=== PATIENT | female | born 1945 | race Caucasian/White ===

== ENCOUNTER → 2021-08-16 | Outpatient (CLI) | payer MEDICARE, BC ==
--- NOTE | 2021-08-16 18:40 | Diagnostic Imaging Report ---
INDICATION: Palpable lump left breast. CORRELATION is made with prior mammogram from 02/11/2019. 2-D and 3-D bilateral diagnostic mammography was performed with CAD. BB marker was placed at the area of palpable abnormality in the left breast. Both breasts are heterogeneously dense, limiting sensitivity of mammography. There appears to be a circumscribed nodule just deep to the marker in the upper left breast. Further evaluation if this area with ultrasound is recommended. No other masses are seen. No malignant-appearing microcalcifications are identified. Axillae are unremarkable. IMPRESSION: BI-RADS 0. Circumscribed nodule just deep to the BB marker in the upper left breast at the area of palpable abnormality. Further evaluation with ultrasound is recommended and will be performed today. ACR BI-RADS Category 0: Incomplete. (Needs additional imaging evaluation). Result letter will be mailed to the patient. Note: At least 10% of breast cancer is not imaged by mammography. Dictated by: Dictated on workstation # [id number]
--- NOTE | 2021-08-16 18:48 | Diagnostic Imaging Report ---
INDICATION: Palpable lump left breast. CORRELATION is made with the diagnostic mammogram earlier the same day. Sonography interrogation of the palpable abnormality in the upper slightly inner left breast was performed. There is a somewhat heterogeneous nodule at this location measuring 9 mm x 14 mm x 10 mm. This has ill-defined borders. There is questionable posterior acoustic shadowing present as well. No significant vascularity is seen. No other abnormalities are detected. IMPRESSION: BI-RADS Category 4 Indeterminate, ill-defined heterogeneous nodule at the 11:00 location of the left breast, 3 cm from the nipple, corresponding to the palpable abnormality. Small breast neoplasm cannot be entirely excluded. Tissue sampling is recommended. This would be amenable to ultrasound-guided core biopsy. ACR BI-RADS Category 4: Suspicious abnormality. Result letter will be mailed to the patient. Note: At least 10% of breast cancer is not imaged by mammography. Dictated by: Dictated on workstation # [id number]
== END ==
LOC: RAD 14:15
DX: N63.21 Unspecified lump in the left breast, upper outer quadrant (principal)
CPT/HCPCS: 76642; 77066; G0279; 77062

== ENCOUNTER → 2021-08-31 | Outpatient (CLI) | payer MEDICARE, BC ==
[~2021-08-31] VITALS: Ht 165 cm; Wt 54.0 kg
[~2021-08-31] MED LIST: LIDOCAINE 1% INJ 20 ML VIAL INJ ONE
--- NOTE | 2021-08-31 11:08 | Diagnostic Imaging Report ---
Indication: Left breast nodule. Patient presents for ultrasound-guided biopsy. Patient brought to the ultrasound suite placed on table in the supine position. Ultrasound imaging of the left breast was performed to evaluate appropriate entry site. The left breast was then prepped and draped in usual sterile fashion. Small amount 1% lidocaine was utilized for local anesthesia. A total of 3 core biopsies were obtained of the heterogeneous hypoechoic nodule at 11:00 location left breast, 3 cm from the nipple utilizing a 14-gauge achieve needle. A marker clip was then deployed. Hemostasis was obtained using manual compression. Patient tolerated the procedure well. Patient obtained post procedure mammogram. Patient left the department in satisfactory condition. IMPRESSION: Successful sono-guided core biopsy of the hypoechoic nodule at 11:00 location left breast, 3 cm from the nipple. Pathology results are currently pending. Dictated by: Dictated on workstation # [id number]
--- NOTE | 2021-08-31 13:33 | Diagnostic Imaging Report ---
INDICATION: Left breast mass. Patient is status post ultrasound-guided breast mass biopsy. Unilateral left 2-D CC and ML mammography was performed after patient underwent left breast biopsy. There is a marker clip in the upper aspect of the left breast, status post biopsy. IMPRESSION: Marker clip in the upper posterior left breast, status post ultrasound-guided biopsy. Dictated by: Dictated on workstation # [id number]
== END ==
LOC: RAD 09:00
PROVIDERS: ATTEND Family Medicine
DX: N63.22 Unspecified lump in the left breast, upper inner quadrant (principal); N63.21 Unspecified lump in the left breast, upper outer quadrant
CPT/HCPCS: 19083; 77065; 88305; 88341; 88342; 88360; G0279

== ENCOUNTER 2021-10-04 05:33 | Outpatient (CLI) | payer MEDICARE, BC ==
[~2021-10-04] VITALS: Ht 167.6 cm; Wt 61.7 kg
[2021-10-04] MEDS ORDERED: APIX5TAB PO (12:27)
[2021-10-04] MEDS ORDERED: DILT120C85 PO (12:27)
[2021-10-04] MEDS ORDERED: POTA-179 PO (12:27)
[2021-10-04] MEDS ORDERED: ESTR0.62 PO (12:27)
[2021-10-04] MEDS ORDERED: FURO-124 PO (12:27)
[2021-10-04] MEDS ORDERED: ACHD5005 PO (12:27)
[2021-10-04] MEDS ORDERED: DIGO250T3 PO (12:27)
[2021-10-04] MEDS ORDERED: LISI2.5T13 PO (12:27)
[2021-10-04] MEDS ORDERED: ATOR10TA66 PO (12:27)
== END 2021-10-04 12:50 | disposition home or self-care (01) ==
LOC: PREOP 05:33
PROVIDERS: ATTEND Surgery
DX: Z01.818 Encounter for other preprocedural examination (principal)

== ENCOUNTER → 2021-10-11 | Day surgery (SDC) | payer MEDICARE, BC ==
[2021-10-11] VITALS (10 sets, daily range): BP systolic 134–178; BP diastolic 73–94
[~2021-10-11] VITALS: Ht 167 cm; Wt 61.7 kg
[~2021-10-11] MED LIST changes: +ACHD5005 PO; +APIX5TAB PO; +ATOR10TA66 PO; +DIGO250T3 PO; +DILT120C85 PO; +DOCU-143 PO; +ESTR0.62 PO; +FURO-124 PO; +HYDROcodone/APAP 5 MG/325 MG (LORTAB) TAB ONE; +HYDROcodone/APAP 5 MG/325 MG (LORTAB) TAB PO ONE; +LIDOCAINE 1% INJ 20 ML VIAL ONE; +LIDOCAINE PF 2% 5 ML (XYLOCAINE) VIAL ONE; +LIDOCAINE/EPI 2% 1:100,00 (XYLOCAINE) 20 ML VIAL ONE; +LISI2.5T13 PO; +METHYLENE BLUE 0.5% (PROVAYBLUE) 50 mg/10 ml vial IV ONE; +ONDANSETRON 4 MG/2 ML (SDV) Z0FRAN IVP PRN; +ONDANSETRON 4 MG/2 ML (SDV) Z0FRAN ONE; +POTA-179 PO; +SEVOFLURANE (ULTANE) 15 ML INHAL SOLN ONE; +ceFAZolin INJECTION 1,000 MG VIAL IV ONE; +fentaNYL INJ 100 MCG/2 ML AMP IVP ONE; +fentaNYL INJ 100 MCG/2 ML AMP ONE; +proPOfol 200 MG/20 ML (DIPRIVAN) VIAL IV ONE
--- NOTE | 2021-10-11 08:06 | Progress Note-Pre Operative ---
Pre-Operative Progress Note H&P Reviewed The H&P was reviewed, patient examined and no changes noted. 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
--- NOTE | 2021-10-11 09:14 | Diagnostic Imaging Report ---
INDICATION: Breast cancer. A total of 1.0 mCi technetium 99m sulfur colloid was injected in 4 separate aliquots in a left breast periareolar distribution. Imaging was performed. Imaging demonstrates activity at the injection sites in the periareolar region. There is migration of activity into the left axilla consistent with activity within the sentinel node. This was marked on the patient's skin. IMPRESSION: Left breast lymphoscintigraphy, as described. Dictated by: Dictated on workstation # [id number]
--- NOTE | 2021-10-11 09:34 | Diagnostic Imaging Report ---
INDICATION: Left breast carcinoma. Patient is status post ultrasound-guided hookwire placement. TECHNIQUE: Unilateral left 2D CC and ML mammography was performed. The current study was evaluated with a Computer Aided Detection (CAD) system. FINDINGS: The hookwire appears to enter from a lateral approach. The hookwire is located just anterior to the marker clip in the upper aspect of the left breast. IMPRESSION: Hookwire placement, as described. Dictated by: Dictated on workstation # [id number]
[2021-10-11] MEDS: LACTATED RINGERS 1,000 ML IV PRN ×3 (10:02→12:28)
--- NOTE | 2021-10-11 11:14 | Diagnostic Imaging Report ---
INDICATION: Left breast cancer. PROCEDURE: The patient presents for ultrasound-guided wire localization. The patient was brought to the sonographic suite and placed on the table in the supine position. Ultrasound imaging of the left breast was performed to evaluate appropriate entry site. Left breast was then prepped and draped in the usual sterile fashion. A small amount of 1% lidocaine was utilized for local anesthesia. A localizer needle was advanced through the lesion at the 11:00 location of the left breast, 3 cm from the nipple. The hookwire was deployed. The needle was removed. The hookwire was affixed to the patient's skin. The patient tolerated the procedure well. The patient was sent for post procedure mammogram in satisfactory condition. IMPRESSION: Successful ultrasound-guided hookwire localization of the lesion at the 11:00 location of the left breast, 3 cm from the nipple. Dictated by: Dictated on workstation # [id number]
--- NOTE | 2021-10-11 12:34 | Diagnostic Imaging Report ---
INDICATION: Left breast carcinoma status post lumpectomy. TECHNIQUE: A specimen radiograph was submitted. FINDINGS: The hookwire and a localizer clip are located within the specimen. There is an area of rounded density noted within the specimen as well located between coordinates C to E as well as 8 through 10. This may represent the known breast mass. IMPRESSION: Specimen radiograph, as described. Dictated by: Dictated on workstation # [id number]
--- NOTE | 2021-10-11 12:48 | Anesthesia-General Post-Op ---
General Patient Condition Mental Status/LOC: Same as Preop Cardiovascular: Satisfactory Nausea/Vomiting: Absent Respiratory: Satisfactory Pain: Controlled Complications: Absent Post Op Complications Complications None Follow Up Care/Instructions Patient Instructions None needed. Anesthesia/Patient Condition Patient Condition Patient is doing well, no complaints, stable vital signs, no apparent adverse anesthesia problems. No complications reported per nursing. MADDIE CUBA CRNA Oct 11, 2021 12:48
--- NOTE | 2021-10-11 13:24 | Discharge Inst-Simple/Standard ---
Discharge Inst-Standard Discharge Medications New, Converted or Re-Newed RX: Transmitted to Pharmacy Patient Instructions/Follow Up Plan of Care/Instructions/FU: 2 weeks Tommy Activity as Tolerated: No Discharge Diet: Regular Diet Other Inst to Patient Follow up Appt: Make appointment for 2 week. Instructions: No lifting greater than 10 pounds. No strenuous activity. May shower in 24 hours, no tub bath or soaking. Use incentive spirometer at home as directed. No Smoking Skin/Wound Care: You have special glue over your incision that will fall off on it's own. Change bandage daily and as needed for comfort. Wear supportive clothing. Symptoms to Report: Appetite Changes, Extremity Discoloration, Numbness/Tingling, Swelling Increased, Bleeding Excessive, Eyesight Changes, Pain Increased, Urine Color Change, Constipation(Persistent), Fever over 101 degree F, Pain/Pressure in chest, Urinating Difficulty, Cough Up/Vomit Blood, Heart Beat Irreg/Pounding, Pain/Pressure in jaw, Vaginal Bleeding Increase, Cramps in feet or legs, Lightheadedness, Pain/Pressure in shoulder, Diarrhea(Persistent), Memory Changes Suddenly, Questions/Concerns, Weight gain consecutive days, Dizziness/Fainting, Nausea/Vomiting, Shortness of Breath, Weight gain over 2 pounds If questions or concerns contact your physician Or seek help at emergency department. KAYLEN MORRIS DO Oct 11, 2021 13:24
--- NOTE | 2021-10-11 13:27 | Progress Note-Post Operative ---
Post-Operative Progess Note Surgeon (s)/Radiation Control Worker (s) Surgeon KAYLEN MORRIS DO Radiation Control Worker: Ralph Knowles Pre-Operative Diagnosis left breast infiltrating lobular carcinoma left breast Post-Operative Diagnosis same Procedure & Operative Findings Date of Procedure 10/11/21 Procedure Performed/Findings wire localzied left breast lumpectomy with sentinel node biopsy Anesthesia Type general Estimated Blood Loss Estimated blood loss (mL): minimal Specimens/Packing Specimens Removed wire localized left breast lumpectomy and sentinel node KAYLEN MORRIS DO Oct 11, 2021 13:27
--- NOTE | 2021-10-11 21:28 | OPERATIVE REPORT ---
DATE OF SERVICE: 10/11/2021 PREOPERATIVE DIAGNOSIS: Left breast infiltrating lobular carcinoma. POSTOPERATIVE DIAGNOSIS: Left breast infiltrating lobular carcinoma. PROCEDURE: Wire localized left breast lumpectomy with sentinel node biopsy. SURGEON: Kaylen Sanders DO DIRECTOR OF INFORMATICS: to assist in retraction, dissection and closure. ANESTHESIA: General. ESTIMATED BLOOD LOSS: Minimal. COMPLICATIONS: None. INDICATIONS: The patient is a 75-year-old female with left breast infiltrating lobular carcinoma. She understands risks and benefits of procedure and wished to proceed. Consent was signed in the chart. DESCRIPTION OF PROCEDURE: The patient was taken to the operating suite. She was prepped and draped in sterile fashion. Timeout was performed. Methylene blue was injected in four locations on the breast, 1 mL in each location. The breast was then massaged for lymphatic distribution. The breast was then reprepped and draped in a sterile fashion. An incision was made in the left upper quadrant of the breast and the wire was then incorporated through the incision. Cautery was used to dissect circumferentially around the wire until the wire and mass were removed. Radiological imaging demonstrated removal of the mass, clip and wire. The wound was then irrigated with sterile water. Hemostasis was achieved. The Maypearl counter was then used to isolate the sentinel node. A node in vivo was found to be 3818. This was then able to be dissected around and removed. A 10-second count on the node was 11,733. No other nodes were able to be felt with the Maypearl counter within 10% of the original in vivo count. The axilla was then irrigated with copious amounts of irrigation. Subcutaneous tissues were then reapproximated using 3-0 Vicryl. Skin was then closed using 4-0 Monocryl in a running subcuticular fashion. The area was washed and dried and Skin Affix was placed over the incision. Sterile bandages were applied. The patient tolerated procedure well without any complications, taken to recovery room in stable condition. Job ID: [id number] DocumentID: [id number] Dictated Date: 10/11/2021 17:15:27 Metal Wire Technician Date: 10/11/2021 21:26:17 Dictated By: KAYLEN SANDERS DO
== END ==
LOC: CARD 06:13
PROVIDERS: ATTEND Surgery
DX: C50.912 Malignant neoplasm of unspecified site of left female breast (principal); Z79.01 Long term (current) use of anticoagulants
CPT/HCPCS: 19285; 19301; 38500; 38900; 76098; 77065; 78195; 87081; A4648; A9541; G0279; 88307; 88342

== ENCOUNTER → 2021-11-13 | Outpatient (CLI) | payer MEDICARE, BC ==
[~2021-11-13] MED LIST changes: -HYDROcodone/APAP 5 MG/325 MG (LORTAB) TAB ONE; -HYDROcodone/APAP 5 MG/325 MG (LORTAB) TAB PO ONE; -LIDOCAINE 1% INJ 20 ML VIAL INJ ONE; -LIDOCAINE 1% INJ 20 ML VIAL ONE; -LIDOCAINE PF 2% 5 ML (XYLOCAINE) VIAL ONE; -LIDOCAINE/EPI 2% 1:100,00 (XYLOCAINE) 20 ML VIAL ONE; -METHYLENE BLUE 0.5% (PROVAYBLUE) 50 mg/10 ml vial IV ONE; -ONDANSETRON 4 MG/2 ML (SDV) Z0FRAN IVP PRN; -ONDANSETRON 4 MG/2 ML (SDV) Z0FRAN ONE; -SEVOFLURANE (ULTANE) 15 ML INHAL SOLN ONE; -ceFAZolin INJECTION 1,000 MG VIAL IV ONE; -fentaNYL INJ 100 MCG/2 ML AMP IVP ONE; -fentaNYL INJ 100 MCG/2 ML AMP ONE; -proPOfol 200 MG/20 ML (DIPRIVAN) VIAL IV ONE
--- NOTE | 2021-11-13 15:25 | Diagnostic Imaging Report ---
INDICATION: Postmenopausal screening COMPARISON: Baseline FINDINGS: AP Spine L1-L4: [BMD (g/cm2): 1.064] [T-Score: -1.1] [Z-Score: 0.8] [BMD Previous: na] [BMD % Change: na] LT Hip Neck: [BMD (g/cm2): 0.750] [T-Score: -2.1] [Z-Score: 0.0] LT Hip Total: [BMD (g/cm2):0.752] [T-Score:-1.7] [Z-Score: 0.2] [BMD Previous: na] [BMD % Change: na] RT Hip Neck: [BMD (g/cm2):0.692] [T-Score:-2.5] [Z-Score:-0.4] RT Hip Total: [BMD (g/cm2):0.748] [T-score:-2.1] [Z-Score:-0.1] [BMD Previous:na] [BMD % Change:na] *Indicates significant change from prior examination based on 95% confidence level. World Health Organization criteria for BMD interpretation classify patients as Normal (T-score at or above -1.0), Osteopenic (T-score between -1.0 and -2.5) or Osteoporotic (T-score at or below -2.5). LIMITATIONS AND MODIFICATION: None. FRACTURE RISK (FRAX SCORE): The ten year probability of (%): Major Osteoporotic Fracture: [16.7] Hip Fracture: [5.9] IMPRESSION: 1. Osteopenia (Low bone mass). 2. Baseline examination. 3. See below National Osteoporosis Foundation guidelines on when to potentially initiate pharmacologic therapy. Based on the National Osteoporosis Foundation Guidelines, pharmacologic treatment should be initiated in any of the following, unless clinical conditions suggest otherwise: * Any patient with prior fragility fracture of the hip or vertebrae. A spine fracture indicates 5X risk for subsequent spine fracture and 2X risk for subsequent hip fracture. * Osteoporosis (T-score <-2.5). * Postmenopausal women and men age 50 and older with low bone mass/osteopenia (T-score between -1.0 and -2.5) by DXA and 10-year major osteoporotic fracture greater than 20% or a 10-year probability of hip fracture greater than 3%. These fracture risks are supplied above in the FRAX score, if applicable. * Clinician judgement and/or patient preferences may indicate treatment for people with 10-year fracture probabilities above or below these levels. Dictated by: Dictated on workstation # [id number]
== END ==
LOC: RAD 12:30
PROVIDERS: ATTEND Internal Medicine Hematology & Oncology
DX: Z13.820 Encounter for screening for osteoporosis (principal); M85.88 Other specified disorders of bone density and structure, other site; C50.212 Malignant neoplasm of upper-inner quadrant of left female breast; Z78.0 Asymptomatic menopausal state; Z79.811 Long term (current) use of aromatase inhibitors
CPT/HCPCS: 77080

== ENCOUNTER 2022-03-15 13:09 | Emergency (ER) | payer MEDICARE, BC ==
[~2022-03-15] VITALS: Ht 170.2 cm; Wt 62.1 kg
[2022-03-15 13:58] LABS: BASOPHILS % (AUTO) 1 % (0-10); EOSINOPHILS # (AUTO) 0.2 10^3/uL (0.0-0.3); EOSINOPHILS % (AUTO) 3 % (0-10); HEMATOCRIT 41 % (35-52); HEMOGLOBIN 13.3 g/dL (11.5-16.0); LYMPHOCYTES # (AUTO) 1.7 10^3/uL (1.0-4.0); LYMPHOCYTES % (AUTO) 31 % (12-44); MEAN CORPUSCULAR HEMOGLOBIN 32 pg (25-34); MEAN CORPUSCULAR HGB CONC 33 g/dL (32-36); MEAN CORPUSCULAR VOLUME 97 fL (80-99); MEAN PLATELET VOLUME 9.4 fL (9.0-12.2); MONOCYTES # (AUTO) 0.6 10^3/uL (0.0-1.0); MONOCYTES % (AUTO) 12 % (0-12); NEUTROPHILS # (AUTO) 2.8 10^3/uL (1.8-7.8); NEUTROPHILS % (AUTO) 53 % (42-75); PLATELET COUNT 185 10^3/uL (130-400); WHITE BLOOD COUNT 5.3 10^3/uL (4.3-11.0)
[2022-03-15 14:06] LABS: ALBUMIN 4.1 GM/DL (3.2-4.5)
[2022-03-15 14:07] LABS: CHLORIDE 103 MMOL/L (98-107); POTASSIUM 3.9 MMOL/L (3.6-5.0); SODIUM 141 MMOL/L (135-145)
[2022-03-15 14:08] LABS: CALCIUM 9.3 MG/DL (8.5-10.1)
[2022-03-15 14:09] LABS: GLUCOSE 105 MG/DL (70-105)
--- NOTE | 2022-03-15 14:09 | Diagnostic Imaging Report ---
PROCEDURE: CT head wo r/o stroke. TECHNIQUE: Multiple contiguous axial images were obtained through the brain without the use of intravenous contrast. Auto Exposure Controls were utilized during the CT exam to meet ALARA standards for radiation dose reduction. INDICATION: Neuro deficit, double vision. COMPARISON: None. FINDINGS: The ventricles and cortical sulci are diffusely prominent, compatible with age-related volume loss. There are confluent areas of abnormal, low attenuation in the periventricular white matter. This is consistent with small vessel ischemic changes; age-indeterminate. There is no prior study available for comparison. There is no midline shift or mass-effect. No acute intra-axial hemorrhage is seen. There are no abnormal areas of increased or decreased density to suggest acute hemorrhage or edema. No extra-axial masses or collections are present. The bony calvarium is intact. The visualized paranasal sinuses show minimal air-fluid level in the right sphenoid sinus. The mastoid air cells are clear. IMPRESSION: 1. No acute intracranial abnormality. No CT evidence of mass, acute infarct or intracranial hemorrhage. 2. Small vessel ischemic changes in the periventricular and subcortical white matter; likely chronic. Dictated by: Dictated on workstation # [id number]
[2022-03-15 14:10] LABS: CARBON DIOXIDE 30 MMOL/L (21-32)
[2022-03-15 14:11] LABS: BILIRUBIN,TOTAL 0.6 MG/DL (0.1-1.0)
--- NOTE | 2022-03-15 14:11 | Diagnostic Imaging Report ---
CLINICAL INDICATION: Patient with diplopia. EXAM: Portable chest x-ray upright view. COMPARISON: None. FINDINGS: Lungs/pleura: Lungs are clear. There is no pneumothorax. There is no pleural effusion. Mediastinum: Unremarkable. Pulmonary vasculature: Unremarkable. Heart: There is significant cardiomegaly. Bones/extrathoracic soft tissue: There is scoliosis of the spine. There are degenerative spurs involving the spine. IMPRESSION: 1: There is significant cardiomegaly with no significant pulmonary vascular congestion. Pericardial effusion may also be considered. 2: Otherwise, there is no radiographic evidence of acute cardiopulmonary process. Dictated by: Dictated on workstation # [id number]
[2022-03-15 14:12] LABS: ALKALINE PHOSPHATASE 114 U/L (40-136)
[2022-03-15 14:13] LABS: CREATININE SERUM 0.82 MG/DL (0.60-1.30); GFR ESTIMATED 73
[2022-03-15 14:14] LABS: BUN/CREATININE RATIO 18; FIBRIN DEGRADATION PRODUCTS 0.93 UG/ML (0.00-0.49); INR 1.3 (0.8-1.4); PROTHROMBIN TIME PATIENT 16.1 SEC (12.2-14.7)
[2022-03-15 14:15] LABS: ALANINE AMINOTRANSFERASE 20 U/L (0-55)
--- NOTE | 2022-03-15 15:11 | ED Neurological Problem ---
General Chief Complaint: Neurological Problems Stated Complaint: DOUBLE VISION Nursing Triage Note: PT AMBULATE TO ROOM 09 WITHOUT DIFFICULTY WITH C/O DOUBLE VISION STARTING THIS MORNING. Source: patient, family Exam Limitations: no limitations History of Present Illness Date Seen by Provider: Mar 15, 2022 Time Seen by Provider: 13:33 Initial Comments This is 76-year-old woman presents to the emergency room with complaint of horizontal binocular diplopia that started this morning approximately 0730, shortly after waking up. She does not believe it was present upon waking. Diplopia is horizontal and more pronounced with central and leftward gaze, less pronounced with rightward gaze. She is presently taking oral medication for breast cancer after having lumpectomies. She also takes Eliquis for stroke prophylaxis with atrial fibrillation. Dr. Mckeon is her oncologist and Dr. Martinez in [place], [place] is her primary care provider. She denies any other focal neurologic deficits. She has not started or stopped any new medications within the past week or so. Diplopia is binocular and resolves if she covers either eye. She does report to drinking tonic water with quinine in it recently. Allergies and Home Medications Allergies Coded Allergies: No Known Drug Allergies (Unverified , 08/31/21) Patient Home Medication List Home Medication List Reviewed: Yes Apixaban (Eliquis) 5 Mg Tablet, 5 MG PO BID, (Reported) Entered as Reported by: RBANDON GANDHI on 10/04/21 1227 Atorvastatin Calcium (Atorvastatin Calcium) 10 Mg Tablet, 10 MG PO HS, (Reporte d) Entered as Reported by: BRANDON GANDHI on 10/04/21 1227 Digoxin (Digoxin) 250 Mcg Tablet, 250 MCG PO DAILY, (Reported) Entered as Reported by: BRANDON GANDHI on 10/04/21 1227 Diltiazem HCl (Diltiazem ER) 120 Mg Capsule.er, 120 MG PO DAILY, (Reported) Entered as Reported by: BRANDON GANDHI on 10/04/21 1227 Docusate Sodium (Colace) 100 Mg Capsule, 100 MG PO BID Prescribed by: KAYLEN MORRIS on 10/11/21 1322 Furosemide (Lasix) 40 Mg Tablet, 40 MG PO UD, (Reported) Entered as Reported by: BRANDON GANDHI on 10/04/21 1227 Hydrocodone/Acetaminophen (Hydrocodone-Acetamin 5-325 mg) 1 Each Tablet, 1 EACH PO Q4H PRN for PAIN-MODERATE (5-7) Prescribed by: KAYLEN MORRIS on 10/11/21 1323 Lisinopril (Lisinopril) 2.5 Mg Tablet, 2.5 MG PO DAILY, (Reported) Entered as Reported by: BRANDON GANDHI on 10/04/21 1227 Potassium Chloride (Potassium Chloride) 20 Meq Tab.er.prt, 20 MEQ PO DAILY, (Reported) Entered as Reported by: BRANDON GANDHI on 10/04/21 1227 Review of Systems Review of Systems Constitutional: no symptoms reported Eyes: See HPI Ears, Nose, Mouth, Throat: no symptoms reported Respiratory: no symptoms reported Cardiovascular: no symptoms reported Gastrointestinal: no symptoms reported Genitourinary: no symptoms reported : No Musculoskeletal: no symptoms reported Skin: no symptoms reported Psychiatric/Neurological: See HPI Endocrine: No Symptoms Reported Hematologic/Lymphatic: No Symptoms Reported Past Lpnpkgx-Oflsag-Odrctm Hx Patient Social History Tobacco Use?: No Smoking Status: Never a Smoker Smokeless Tobacco Frequency: Never a User Use of E-Cig and/or Vaping dev: No Use of E-Cig and/or Vaping Babar: Never a User Substance use?: No Alcohol Use?: No Pt feels they are or have been: No Immunizations Up To Date First/Initial COVID19 Vaccinat: AUG 2021 Second COVID19 Vaccination Jose: AUG 2021 Third COVID19 Vaccination Date: AUG 2021 COVID19 Vaccine 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: elarm Seasonal Allergies Seasonal Allergies: Yes Past Medical History Surgeries: Yes (HYSTERECTOMY CSECTIONX1, THYROID NODULE REMOVAL) Breast (Lumpectomy), Section, Gallbladder Respiratory: No Currently Using CPAP: No Currently Using BIPAP: No 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) Atrial Fibrillation, High Cholesterol, Hypertension Neurological: No Female Reproductive Disorders: Menstrual Problems 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 oz. kg; 21.00 BMI Method: General Appearance: WD/WN, no apparent distress HEENT: PERRL/EOMI, normal ENT inspection Neck: normal inspection Respiratory: lungs clear, normal breath sounds, no respiratory distress Cardiovascular: regular rate, rhythm, no edema, no murmur Gastrointestinal: non tender, soft; No distended Extremities: normal inspection, no pedal edema Neurologic/Psychiatric: no motor/sensory deficits, alert, normal mood/affect, oriented x 3, other (Extraocular movements intact but there is diplopia more pronounced with central and leftward gaze) Crainal Nerves: normal hearing, normal speech, PERRL Coordination/Gait: normal finger to nose, normal gait Motor/Sensory: no motor deficit, no sensory deficit Skin: normal color, warm/dry Stroke NIH Stroke Scale Assessment Select: Initial Level of Consciousness: 0=Alert (0), Level of Consciousness- Questions: 0=Answers both month/age (0), LOC Commands: 0=Performs both tasks (0), Gaze: Normal (0), Visual Lowe: 0=No visual loss (0), Facial Movement (Facial Paresis): 0=Normal symmetrical mnt (0), Motor Function-Arms Right: 0=No drift (0), Motor Function-Arms Left: 0=No drift (0), Motor Function-Legs Right: 0=No drift (0), Motor Function-Legs Left: 0=No drift (0), Limb Ataxia: 0=Absent (0), Sensory: 0=Normal:no loss (0), Best Language: 0=No aphasia (0), Dysarthria: 0=Normal (0), Extinction & Inattention: 0=No abnormality (0), Total: 0 Progress/Results/Core Measures Results/Orders Lab Results Laboratory Tests Test 03/15/22 13:10 03/15/22 13:40 03/15/22 13:43 03/15/22 15:19 Range/Units Thyroid Stimulating Hormone (TSH) 0.58 0.35-4.94 UIU/ML Free Thyroxine 1.18 0.70-1.48 NG/DL White Blood Count 5.3 4.3-11.0 10^3/uL Red Blood Count 4.17 3.80-5.11 10^6/uL Hemoglobin 13.3 11.5-16.0 g/dL Hematocrit 41 35-52 % Mean Corpuscular Volume 97 80-99 fL Mean Corpuscular Hemoglobin 32 25-34 pg Mean Corpuscular Hemoglobin Concent 33 32-36 g/dL Red Cell Distribution Width 12.5 10.0-14.5 % Platelet Count 185 130-400 10^3/uL Mean Platelet Volume 9.4 9.0-12.2 fL Immature Granulocyte % (Auto) 0 % Neutrophils (%) (Auto) 53 42-75 % Lymphocytes (%) (Auto) 31 12-44 % Monocytes (%) (Auto) 12 0-12 % Eosinophils (%) (Auto) 3 0-10 % Basophils (%) (Auto) 1 0-10 % Neutrophils # (Auto) 2.8 1.8-7.8 10^3/uL Lymphocytes # (Auto) 1.7 1.0-4.0 10^3/uL Monocytes # (Auto) 0.6 0.0-1.0 10^3/uL Eosinophils # (Auto) 0.2 0.0-0.3 10^3/uL Basophils # (Auto) 0.0 0.0-0.1 10^3/uL Immature Granulocyte # (Auto) 0.0 0.0-0.1 10^3/uL Prothrombin Time 16.1 H 12.2-14.7 SEC INR Comment 1.3 0.8-1.4 Activated Partial Thromboplast Time 49 H 24-35 SEC D-Dimer 0.93 H 0.00-0.49 UG/ML Sodium Level 141 135-145 MMOL/L Potassium Level 3.9 3.6-5.0 MMOL/L Chloride Level 103 98-107 MMOL/L Carbon Dioxide Level 30 21-32 MMOL/L Anion Gap 8 5-14 MMOL/L Blood Urea Nitrogen 15 7-18 MG/DL Creatinine 0.82 0.60-1.30 MG/DL Estimat Glomerular Filtration Rate 73 BUN/Creatinine Ratio 18 Glucose Level 105 70-105 MG/DL Calcium Level 9.3 8.5-10.1 MG/DL Corrected Calcium 9.2 8.5-10.1 MG/DL Total Bilirubin 0.6 0.1-1.0 MG/DL Aspartate Amino Transf (AST/SGOT) 24 5-34 U/L Alanine Aminotransferase (ALT/SGPT) 20 0-55 U/L Alkaline Phosphatase 114 40-136 U/L Troponin I < 0.028 <0.028 NG/ML Total Protein 7.0 6.4-8.2 GM/DL Albumin 4.1 3.2-4.5 GM/DL Digoxin Level 1.00 0.80-2.00 NG/ML Glucometer 98 70-110 MG/DL Urine Color YELLOW Urine Clarity CLEAR Urine pH 6.5 5-9 Urine Specific Gunter 1.015 L 1.016-1.022 Urine Protein NEGATIVE NEGATIVE Urine Glucose (UA) NEGATIVE NEGATIVE Urine Ketones NEGATIVE NEGATIVE Urine Nitrite NEGATIVE NEGATIVE Urine Bilirubin NEGATIVE NEGATIVE Urine Urobilinogen 0.2 < = 1.0 MG/DL Urine Leukocyte Esterase NEGATIVE NEGATIVE Urine RBC (Auto) NEGATIVE NEGATIVE Urine RBC NONE /HPF Urine WBC 2-5 /HPF Urine Squamous Epithelial Cells RARE /HPF Urine Crystals NONE /LPF Urine Bacteria FEW H /HPF Urine Casts NONE /LPF Urine Mucus NEGATIVE /LPF Urine Culture Indicated YES My Orders Orders - JC RAMIRES MD Ct Head Wo-R/O Stroke (03/15/22 13:33) Cbc With Automated Diff (03/15/22 13:52) Protime With Inr (03/15/22 13:52) Partial Thromboplastin Time (03/15/22 13:52) Comprehensive Metabolic Panel (03/15/22 13:52) Fibrin Degradation Products (03/15/22 13:52) Troponin I [place] (03/15/22 13:52) Ua Culture If Indicated (03/15/22 13:52) Chest 1 View, Ap/Pa Only (03/15/22 13:52) Ekg Tracing (03/15/22 13:52) Nothing By Mouth (03/15/22 Lunch) Accucheck Stat ONCE (03/15/22 13:52) Ed Iv/Invasive Line Start (03/15/22 13:52) Vital Signs Stroke Patient Q15M (03/15/22 13:52) O2 (03/15/22 13:52) Intake & Output 06,14,22 (03/15/22 13:52) Monitor-Rhythm Ecg Trace Only (03/15/22 13:52) Dysphagia Screening Tool Q10MX1 (03/15/22 13:52) Mri Brain W/O Contrast (03/15/22 14:23) Digoxin (03/15/22 14:41) Ct Angio Head/Neck (03/15/22 15:25) Iohexol Injection (Omnipaque 350 Mg/Ml 1 (03/15/22 15:30) Received Contrast (Hold Metformin- Contr (03/15/22 15:30) Sodium Chloride Flush (Catheter Flush Sy (03/15/22 15:30) Ns (Ivpb) (Sodium Chloride 0.9% Ivpb Bag (03/15/22 15:30) Urine Culture (03/15/22 15:19) Thyroid Stimulating Hormone (03/15/22 16:09) Free T4 (Free Thyroxine) (03/15/22 16:09) Medications Given in ED Current Medications Medications Dose Ordered Sig/Sammi Route Start Time Stop Time Status Last Admin Dose Admin Iohexol 75 ml ONCE ONCE IV 03/15/22 15:30 03/15/22 15:31 DC 03/15/22 15:37 75 ML Sodium Chloride 10 ml NEEDED PRN IV 03/15/22 15:30 03/15/22 17:51 DC 03/15/22 15:37 10 ML Sodium Chloride 100 ml ONCE ONCE IV 03/15/22 15:30 03/15/22 15:31 DC 03/15/22 15:37 80 ML Vital Signs/I&O 03/15/22 03/15/22 13:37 13:37 Temp 36.0 Pulse 77 Resp 15 B/P (MAP) 153/92 (112) Pulse Ox 97 O2 Delivery Room Air Room Air Blood Pressure Mean: 112 FSBG Bedside Testing Finger Stick Blood Glucose: 98 Blood Glucose Action Taken: PROVIDER NOTIFIED Progress Progress Note : Progress Note Patient was interviewed and examined shortly after arrival. Stroke activation was paged. Work-up was conducted in a stepwise fashion. After initial CT of the head, I discussed the situation with Dr. Romero, stroke neurologist at [facility]. She recommended further evaluation with MRI head and CT angiogram head and neck. The studies were obtained and each was negative for acute changes. Patient had persistent binocular horizontal diplopia. I discussed the final work-up results with Dr. Yeboah, stroke neurologist at [facility]. He felt from a stroke perspective the work-up was thorough and she required no further studies in the emergency room. He did recommend consultation with an byproducts operator. We additionally discussed the quinine in the tonic water she was drinking. It is highly unlikely she consumed enough tonic water to cause any adverse effects. Her byproducts operator is Dr. Manning in [place]. I contacted Dr. Agee, byproducts operator electric motor control assembler for Dr. Manning through [place]. 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 He recommended alternating patching for comfort while diplopia persists. He comments that this type of diplopia usually resolves without intervention. He advised against using prisms or changing her lenses in any way at this time. He offered to see Richard next week if Dr. Manning is unable to get her in. She was advised to not drive until diplopia resolves. Return precautions were reviewed. Initial ECG Impression Date: Mar 15, 2022 Initial ECG Impression Time: 15:25 Initial ECG Rate: 71 Initial ECG Rhythm: A Fib/Flutter Initial ECG Impression: Atrial Fibrillation Comment Atrial fibrillation with no ST elevation or depression. Incomplete right bundle branch block. ST changes are nonspecific. No STEMI. Diagnostic Imaging Diagonstic Imaging: CT Plain Films/CT/US/NM/MRI: head Comments NAME: RICHARD GLYNN [facility] REC#: [id number] PT STATUS: REG ER : 1945 PHYSICIAN: JC RAMIRES MD ADMIT DATE: 03/15/22/ER Draft Date of Exam:03/15/22 CT HEAD WO-R/O STROKE PROCEDURE: CT head wo r/o stroke. TECHNIQUE: Multiple contiguous axial images were obtained through the brain without the use of intravenous contrast. Auto Exposure Controls were utilized during the CT exam to meet ALARA standards for radiation dose reduction. INDICATION: Neuro deficit, double vision. COMPARISON: None. FINDINGS: The ventricles and cortical sulci are diffusely prominent, compatible with age-related volume loss. There are confluent areas of abnormal, low attenuation in the periventricular white matter. This is consistent with small vessel ischemic changes; age-indeterminate. There is no prior study available for comparison. There is no midline shift or mass-effect. No acute intra-axial hemorrhage is seen. There are no abnormal areas of increased or decreased density to suggest acute hemorrhage or edema. No extra-axial masses or collections are present. The bony calvarium is intact. The visualized paranasal sinuses show minimal air-fluid level in the right sphenoid sinus. The mastoid air cells are clear. IMPRESSION: 1. No acute intracranial abnormality. No CT evidence of mass, acute infarct or intracranial hemorrhage. 2. Small vessel ischemic changes in the periventricular and subcortical white matter; likely chronic. Dictated on workstation # [id number] Dict: 03/15/22 140 Trans: 03/15/221408 AS6 Interpreted by: WYATT GOMEZ MD Diagonstic Imaging: Xray Plain Films/CT/US/NM/MRI: chest Comments NAME: RICHARD GLYNN MED REC#: [id number] PT STATUS: DEP ER : 1945 PHYSICIAN: JC RAMIRES MD ADMIT DATE: 03/15/22/ER Signed Date of Exam:03/15/22 CHEST 1 VIEW, AP/PA ONLY CLINICAL INDICATION: Patient with diplopia. EXAM: Portable chest x-ray upright view. COMPARISON: None. FINDINGS: Lungs/pleura: Lungs are clear. There is no pneumothorax. There is no pleural effusion. Mediastinum: Unremarkable. Pulmonary vasculature: Unremarkable. Heart: There is significant cardiomegaly. Bones/extrathoracic soft tissue: There is scoliosis of the spine. There are degenerative spurs involving the spine. IMPRESSION: 1: There is significant cardiomegaly with no significant pulmonary vascular congestion. Pericardial effusion may also be considered. 2: Otherwise, there is no radiographic evidence of acute cardiopulmonary process. Dictated by: Dictated on workstation # [id number] Dict: 03/15/221405 Trans: 03/15/221814 AS6 Interpreted by: KRYSTAL ALCARAZ MD Electronically signed by: KRYSTAL ALCARAZ MD 03/15/221814 Diagonstic Imaging: MRI Plain Films/CT/US/NM/MRI: head Comments NAME: RICHARD GLYNN MED REC#: [id number] PT STATUS: [facility] ER : 1945 PHYSICIAN: JC RAMIRES MD ADMIT DATE: 03/15/22/ER Signed Date of Exam:03/15/22 MRI BRAIN W/O CONTRAST PROCEDURE: MR imaging of the brain without contrast. TECHNIQUE: Multiplanar, multisequence MR imaging of the brain was performed without contrast. INDICATION: History of breast cancer. Double vision. Evaluate for metastatic disease. COMPARISON: CT head performed earlier the same date. FINDINGS: No acute ischemia, mass, or hemorrhage. Focal areas of T2 hyperintense signal are seen in the periventricular and subcortical white matter. The ventricles, cortical sulci, and basilar cisterns are symmetric and unremarkable. The sellar and suprasellar regions have a normal appearance. The brainstem and posterior fossa are unremarkable. The paranasal sinuses and mastoid air cells demonstrate normal signal characteristics. The globes and orbits are symmetric and unremarkable. The scalp and calvarium have a normal appearance. IMPRESSION: 1. No acute ischemia, mass, or hemorrhage. No evidence of metastatic disease. 2. Scattered chronic microvascular disease in the periventricular and subcortical white matter. Dictated by: Dictated on workstation # [id number] Dict: 03/15/22 1511 Trans: 03/15/22 1532 [id number] Interpreted by: RAO HILTON DO Electronically signed by: RAO HILTON DO 03/15/22 1532 Diagonstic Imaging: CT Plain Films/CT/US/NM/MRI: other (Angiogram head and neck) Comments NAME: RICHARD GLYNN [facility] REC#: [id number] PT STATUS: REG ER : 1945 PHYSICIAN: JC RAMIRES MD ADMIT DATE: 03/15/22/ER Draft Date of Exam:03/15/22 CT ANGIO HEAD/NECK PROCEDURE: CT angiography of the head and CT angiography of the neck with and without contrast. TECHNIQUE: Contiguous noncontrast images were obtained from the skull base through the vertex. After intravenous contrast administration, helical CT angiography of the neck was performed. Source data was reformatted into 3D MIP projections. Delayed postcontrast acquisition was also obtained. Auto Exposure Controls were utilized during the CT exam to meet ALARA standards for radiation dose reduction. INDICATION: Double vision. COMPARISON: Correlation is made with a noncontrast head CT performed earlier the same day. FINDINGS: Delayed postcontrast imaging through the brain shows no abnormal enhancement. There is a large mixed solid and cystic mass occupying the majority of the left lobe of the thyroid with calcifications. There also appear to be several solid lesions within the right lobe of the thyroid. Dedicated thyroid ultrasound could be performed on a nonemergent basis for better characterization. The right and left common carotid arteries appear to be widely patent, although the origins of the left common carotid artery was not included on this study. The carotid bifurcations are unremarkable. The right and left internal carotid arteries appear to be widely patent. There is a moderate amount of calcified plaque within the carotid siphons. The M1 and M2 segments of the middle cerebral arteries appear to be patent. The right and left anterior cerebral arteries appear patent. Right and left posterior cerebral arteries are patent. Basilar artery is patent. The vertebral arteries are codominant and appear to be widely patent. No intracranial stenosis, thromboembolism, or large vessel occlusion is identified. IMPRESSION: 1. Unremarkable CT angiogram of the head and neck. No intracranial stenosis, thromboembolism, or large vessel occlusion is identified. 2. Enlarged multinodular thyroid, as described. Dedicated thyroid ultrasound on a nonemergent basis could be performed for further characterization. Dictated on workstation # [id number] Dict: 03/15/22 1547 Trans: 03/15/22 1600 [id number] Interpreted by: TAWANA CURTIS MD Departure Impression Primary Impression: Diplopia Additional Impression: Multinodular thyroid Disposition: 01 HOME, SELF-CARE Condition: Stable Departure-Patient Inst. Referrals: NO,LOCAL PHYSICIAN (PCP/Family) Primary Care Physician Patient Instructions: Double Vision Add. Discharge Instructions: The cause of your double vision is likely due to a palsy (paralysis) of one of the extraocular muscles (muscles that control movement of the eye). 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 This problem often resolves on its own within 1 to 2 months. Please continue your medications as previously directed. Follow-up with your byproducts operator, Dr. Manning, next week. Please call Friday morning for an appointment time. If you are unable to get in with Dr. Manning, you may see Dr. Ramirez Agee. Address: [address] [place] [address] [address], [place] [address] You may patch one of your eyes to reduce strain of double vision. If you use a patch, alternate and switch often to avoid fatiguing or atrophying either eye. Do not let anyone change your glasses or give you prism lenses unless otherwise directed by Dr. Manning or Dr. Agee. Return to the emergency room if you develop worsening symptoms or develop additional neurologic deficits such as facial drooping, weakness of an extremity, slurred speech, confusion, other vision changes, etc. You may call Dr. Ramires 6 AM to 6 PM in the ER through the weekend if you have questions. Follow-up with your primary care provider next week regarding your thyroid nodules. All discharge instructions reviewed with patient and/or family. Voiced understanding. Copy Copies To 1: TAMRA MCKEON JOSHUA T MD Mar 15, 2022 15:11
--- NOTE | 2022-03-15 15:20 | Diagnostic Imaging Report ---
PROCEDURE: MR imaging of the brain without contrast. TECHNIQUE: Multiplanar, multisequence MR imaging of the brain was performed without contrast. INDICATION: History of breast cancer. Double vision. Evaluate for metastatic disease. COMPARISON: CT head performed earlier the same date. FINDINGS: No acute ischemia, mass, or hemorrhage. Focal areas of T2 hyperintense signal are seen in the periventricular and subcortical white matter. The ventricles, cortical sulci, and basilar cisterns are symmetric and unremarkable. The sellar and suprasellar regions have a normal appearance. The brainstem and posterior fossa are unremarkable. The paranasal sinuses and mastoid air cells demonstrate normal signal characteristics. The globes and orbits are symmetric and unremarkable. The scalp and calvarium have a normal appearance. IMPRESSION: 1. No acute ischemia, mass, or hemorrhage. No evidence of metastatic disease. 2. Scattered chronic microvascular disease in the periventricular and subcortical white matter. Dictated by: Dictated on workstation # [id number]
[2022-03-15] MEDS ORDERED: IOHEXOL 350 MG/ML 100 ML (OMNIPAQUE 350) VIAL IV ONE (15:30)
[2022-03-15] MEDS ORDERED: HOLD METFORMIN - RECEIVED CONTRAST 20 ML VIAL IV SCH (15:30)
[2022-03-15] MEDS ORDERED: CATHETER FLUSH 10 ML SYR IV PRN (15:30)
[2022-03-15] MEDS ORDERED: NS 100 ML (IVPB) BAG IV ONE (15:30)
[2022-03-15 15:34] LABS: BILIRUBIN,URINE NEGATIVE (NEGATIVE); CLARITY,URINE CLEAR; COLOR,URINE YELLOW; GLUCOSE, URINE (UA) NEGATIVE (NEGATIVE); KETONES,URINE NEGATIVE (NEGATIVE); LEUKOCYTE ESTERASE ,URINE NEGATIVE (NEGATIVE); NITRITE,URINE NEGATIVE (NEGATIVE); PH,URINE 6.5 (5-9); PROTEIN,URINE NEGATIVE (NEGATIVE)
[2022-03-15 15:49] LABS: BACTERIA,URINE FEW /HPF; SQUAMOUS EPITHELIAL CELL,UR RARE /HPF
--- NOTE | 2022-03-15 16:00 | Diagnostic Imaging Report ---
PROCEDURE: CT angiography of the head and CT angiography of the neck with and without contrast. TECHNIQUE: Contiguous noncontrast images were obtained from the skull base through the vertex. After intravenous contrast administration, helical CT angiography of the neck was performed. Source data was reformatted into 3D MIP projections. Delayed postcontrast acquisition was also obtained. Auto Exposure Controls were utilized during the CT exam to meet ALARA standards for radiation dose reduction. INDICATION: Double vision. COMPARISON: Correlation is made with a noncontrast head CT performed earlier the same day. FINDINGS: Delayed postcontrast imaging through the brain shows no abnormal enhancement. There is a large mixed solid and cystic mass occupying the majority of the left lobe of the thyroid with calcifications. There also appear to be several solid lesions within the right lobe of the thyroid. Dedicated thyroid ultrasound could be performed on a nonemergent basis for better characterization. The right and left common carotid arteries appear to be widely patent, although the origins of the left common carotid artery was not included on this study. The carotid bifurcations are unremarkable. The right and left internal carotid arteries appear to be widely patent. There is a moderate amount of calcified plaque within the carotid siphons. The M1 and M2 segments of the middle cerebral arteries appear to be patent. The right and left anterior cerebral arteries appear patent. Right and left posterior cerebral arteries are patent. Basilar artery is patent. The vertebral arteries are codominant and appear to be widely patent. No intracranial stenosis, thromboembolism, or large vessel occlusion is identified. IMPRESSION: 1. Unremarkable CT angiogram of the head and neck. No intracranial stenosis, thromboembolism, or large vessel occlusion is identified. 2. Enlarged multinodular thyroid, as described. Dedicated thyroid ultrasound on a nonemergent basis could be performed for further characterization. Dictated by: Dictated on workstation # [id number]
[2022-03-15 16:49] LABS: FREE T4 (FREE THYROXINE) 1.18 NG/DL (0.70-1.48)
[2022-03-15 17:51] VITALS: BP 154/75
== END 2022-03-15 17:51 | disposition home or self-care (01) ==
LOC: EDUNIT# 13:09 → ER 13:11
DX: H53.2 Diplopia (principal); E04.2 Nontoxic multinodular goiter; I48.91 Unspecified atrial fibrillation; Z98.890 Other specified postprocedural states; Z79.01 Long term (current) use of anticoagulants
CPT/HCPCS: 36415; 70450; 70496; 70498; 70551; 71045; 80053; 80162; 81000; 82947; 84439; 84443; 84484; 85025; 85379; 85610; 85730; 87088; 93041

== ENCOUNTER → 2022-09-11 | Outpatient (CLI) | payer MEDICARE, BC ==
--- NOTE | 2022-09-11 14:34 | Diagnostic Imaging Report ---
EXAMINATION: 3D bilateral diagnostic mammogram with CAD. COMPARISON: This study was compared to the prior exams of 08/16/2021. 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 At this time, there are no current complaints. There is no evidence for recurrent malignancy involving the left breast. The tomographic images also show little scar formation in the biopsy site. The fibroglandular tissue in both breasts is heterogeneously dense. This does limit the sensitivity of this exam. Aside from the post surgical changes on the left, there has been no change. There is no primary or secondary sign of malignancy noted. IMPRESSION: 1. There is no evidence for malignancy. 2. The patient should have a 6 month followup mammogram of the left breast in 6 months for continued evaluation. ACR BI-RADS Category 3: Probably benign findings. Result letter will be mailed to the patient. Note: At least 10% of breast cancer is not imaged by mammography. Dictated by: Dictated on workstation # [id number]
== END ==
LOC: RAD 13:44
PROVIDERS: ATTEND Internal Medicine Hematology & Oncology
DX: C50.919 Malignant neoplasm of unspecified site of unspecified female breast (principal)
CPT/HCPCS: 77066; G0279; 77062

== ENCOUNTER → 2023-03-31 | Outpatient (CLI) | payer MEDICARE, BC ==
[~2023-03-31] MED LIST changes: +DILT120C71 PO; -DILT120C85 PO
--- NOTE | 2023-03-31 12:49 | Diagnostic Imaging Report ---
INDICATION: Left breast carcinoma status post lumpectomy. Patient presents for a 6 month followup. COMPARISON: Correlation is made with the prior mammograms from 09/11/2022 and 08/16/2021. TECHNIQUE: Unilateral left 2D and 3D diagnostic mammography was performed with CAD. FINDINGS: Post lumpectomy changes of the left breast are again noted. The left breast is heterogeneously dense. The overall parenchymal pattern is stable. No residual or recurrent mass is identified. No malignant-appearing microcalcifications are seen. The left axilla is unremarkable. IMPRESSION: Stable left mammogram status post lumpectomy. This shows approximately 18 months of stability. One final 6 month followup is recommended to show 2 years of stability. ACR BI-RADS Category 3: Probably benign findings. Result letter will be mailed to the patient. Note: At least 10% of breast cancer is not imaged by mammography. Dictated by: Dictated on workstation # [id number]
== END ==
LOC: RAD 12:20
PROVIDERS: ATTEND Nurse Practitioner Adult Health
DX: C50.212 Malignant neoplasm of upper-inner quadrant of left female breast (principal); E55.9 Vitamin D deficiency, unspecified; M85.80 Other specified disorders of bone density and structure, unspecified site; Z79.811 Long term (current) use of aromatase inhibitors; Z98.890 Other specified postprocedural states
CPT/HCPCS: 77065; G0279